=== PATIENT | male | born 1945 | race Caucasian/White ===

== ENCOUNTER 2016-12-22 15:23 | Inpatient (IN) | payer MEDICARE ==
[~2016-12-22] VITALS: Ht 170.2 cm; Wt 102.1 kg
[~2016-12-22 15:23] MED LIST: ACID CONTROLLER20 MG PO; ASPIR-LOW81 MG PO; COLACE 100MG C100 MG PO; GLUCOPHAGE1000 MG PO; LYRICA300 MG PO; MORPHINE SULFAT15 MG PO; MORPHINE SULFAT30 M4 PO; MULTILEX-T-M W1 EACH PO; NEURONTIN 400400 MG PO; NORVASC10 MG PO; NOVOLOG100 UNIT/1 SQ; PHENERGAN 25 MG25 M1 PO; PLAVIX 75 MG TA75 MG PO; POLYETHYLENE GLY1 GM PO; SENNA LAX8.6 MG PO; SERTRALINE HCL100 MG PO; SERTRALINE HCL50 MG PO
[2016-12-22] MEDS ORDERED: ZOFRAN ODT 4 MG4 MG PO (17:07)
[2016-12-22] MEDS ORDERED: SANTYL OINT 3030 GM TOP (17:08)
[2016-12-22] MEDS ORDERED: OXYCODONE-ACET1 EACH PO (17:08)
[2016-12-22] MEDS ORDERED: LASIX TAB 20 MG20 MG PO (17:09)
[2016-12-22 17:11] LABS: HEMOGLOBIN 12.6 gm/dl (14.0-17.5); RED BLOOD COUNT 4.23 M/UL (4.20-5.50)
[2016-12-22 19:43] LABS: BUN/CREATININE RATIO 16 (0-10)
[2016-12-23 08:27] LABS: HEMOGLOBIN 12.1 gm/dl (14.0-17.5); RED BLOOD COUNT 4.08 M/UL (4.20-5.50); WHITE BLOOD COUNT 8.6 K/UL (4.5-11.0)
[2016-12-23 08:49] LABS: BUN/CREATININE RATIO 15 (0-10)
[2016-12-24 05:45] LABS: HEMOGLOBIN 12.4 gm/dl (14.0-17.5); RED BLOOD COUNT 4.13 M/UL (4.20-5.50); WHITE BLOOD COUNT 9.9 K/UL (4.5-11.0)
[2016-12-25 06:51] LABS: RED BLOOD COUNT 4.03 M/UL (4.20-5.50); WHITE BLOOD COUNT 8.4 K/UL (4.5-11.0)
[2016-12-25 07:14] LABS: BUN/CREATININE RATIO 16 (0-10)
[2016-12-26 05:46] LABS: BUN/CREATININE RATIO 12 (0-10)
[2016-12-27 05:57] LABS: HEMOGLOBIN 11.7 gm/dl (14.0-17.5); RED BLOOD COUNT 3.97 M/UL (4.20-5.50); WHITE BLOOD COUNT 8.8 K/UL (4.5-11.0)
[2016-12-27 06:18] LABS: BUN/CREATININE RATIO 16 (0-10)
[2016-12-28 05:52] LABS: HEMOGLOBIN 11.8 gm/dl (14.0-17.5); RED BLOOD COUNT 3.97 M/UL (4.20-5.50); WHITE BLOOD COUNT 10.2 K/UL (4.5-11.0)
[2016-12-28 06:13] LABS: BUN/CREATININE RATIO 14 (0-10)
[2016-12-29 06:11] LABS: BUN/CREATININE RATIO 13 (0-10)
[2016-12-30 06:34] LABS: HEMOGLOBIN 12.3 gm/dl (14.0-17.5); RED BLOOD COUNT 4.15 M/UL (4.20-5.50); WHITE BLOOD COUNT 9.3 K/UL (4.5-11.0)
[2016-12-30 07:01] LABS: BUN/CREATININE RATIO 13 (0-10)
[2017-01-01 06:18] LABS: BUN/CREATININE RATIO 15 (0-10)
[2017-01-01 06:37] LABS: HEMOGLOBIN 12.6 gm/dl (14.0-17.5); RED BLOOD COUNT 4.23 M/UL (4.20-5.50); WHITE BLOOD COUNT 9.5 K/UL (4.5-11.0)
[2017-01-04 07:12] LABS: HEMOGLOBIN 12.4 gm/dl (14.0-17.5); RED BLOOD COUNT 4.16 M/UL (4.20-5.50); WHITE BLOOD COUNT 14.5 K/UL (4.5-11.0)
[2017-01-04 07:29] LABS: BUN/CREATININE RATIO 16 (0-10)
[2017-01-05 06:37] LABS: HEMOGLOBIN 12.1 gm/dl (14.0-17.5); RED BLOOD COUNT 4.16 M/UL (4.20-5.50); WHITE BLOOD COUNT 13.9 K/UL (4.5-11.0)
[2017-01-05 06:52] LABS: BUN/CREATININE RATIO 20 (0-10)
== END 2017-01-08 16:26 | DRG 623 ==
LOC: M/S 15:23
PROVIDERS: Emergency Medicine; Family Medicine; Hospitalist; Internal Medicine; Physician Assistant; Podiatrist Foot & Ankle Surgery; ADMIT Internal Medicine
PROC: 0HRNXJZ Replacement of Left Foot Skin with Synthetic Substitute, External Approach (ICD-10-PCS; 2016-12-24)
PROC: 0JBR0ZZ Excision of Left Foot Subcutaneous Tissue and Fascia, Open Approach (ICD-10-PCS; principal; 2016-12-24 09:00)
DX: E11.621 Type 2 diabetes mellitus with foot ulcer (principal); L03.116 Cellulitis of left lower limb; E11.52 Type 2 diabetes mellitus with diabetic peripheral angiopathy with gangrene; L97.429 Non-pressure chronic ulcer of left heel and midfoot with unspecified severity; I50.32 Chronic diastolic (congestive) heart failure; F11.20 Opioid dependence, uncomplicated; B96.20 Unspecified Escherichia coli [E. coli] as the cause of diseases classified elsewhere; B95.62 Methicillin resistant Staphylococcus aureus infection as the cause of diseases classified elsewhere; B96.4 Proteus (mirabilis) (morganii) as the cause of diseases classified elsewhere; B96.89 Other specified bacterial agents as the cause of diseases classified elsewhere; I11.0 Hypertensive heart disease with heart failure; E11.40 Type 2 diabetes mellitus with diabetic neuropathy, unspecified; I25.10 Atherosclerotic heart disease of native coronary artery without angina pectoris; K21.9 Gastro-esophageal reflux disease without esophagitis; E78.5 Hyperlipidemia, unspecified; G89.4 Chronic pain syndrome; F45.42 Pain disorder with related psychological factors; E66.9 Obesity, unspecified; I87.8 Other specified disorders of veins; Z68.35 Body mass index [BMI] 35.0-35.9, adult; Z95.1 Presence of aortocoronary bypass graft; Z95.5 Presence of coronary angioplasty implant and graft; Z87.891 Personal history of nicotine dependence; Z89.511 Acquired absence of right leg below knee; Z89.432 Acquired absence of left foot; Z87.442 Personal history of urinary calculi; Z99.3 Dependence on wheelchair; Z72.3 Lack of physical exercise; Z79.84 Long term (current) use of oral hypoglycemic drugs; Z79.02 Long term (current) use of antithrombotics/antiplatelets; Z79.82 Long term (current) use of aspirin; Z79.899 Other long term (current) drug therapy; Z88.6 Allergy status to analgesic agent; Z98.890 Other specified postprocedural states; Z82.49 Family history of ischemic heart disease and other diseases of the circulatory system; Z83.3 Family history of diabetes mellitus
CPT/HCPCS: 36415; 78315; 80048; 80053; 80202; 82962; 83036; 83735; 85025; 85027; 85610; 86140; 87040; 87070; 87077; 87186; 87205; 93926; A9503; J1335; J1650; J2250; J2270; J2543; J2795; J3010; J3370; J7050; J7070; J7120; Q0162; Q4133